=== PATIENT | female | born 1960 | race Caucasian/White ===

== ENCOUNTER 2017-08-02 18:49 | Emergency (ER) | payer BC ==
[~2017-08-02] VITALS: Ht 170.2 cm; Wt 77.0 kg
[2017-08-02 19:02] VITALS: Ht 170.2 cm; Wt 77.0 kg
--- NOTE | 2017-08-02 23:40 | ERA ---
ER Documentation Chief Complaint Date/Time DATE: 08/02/17 TIME: 23:40 Chief Complaint chest pain x 4 days HPI The patient is a 56-year-old female, presenting to the ER because of left chest wall below the left breast pain for the last 4 days,, worse with movement, associated with cough. She denies fever, chills, neck pain, chest pain with exertion or vomiting or diaphoresis, abdominal pain, vomiting, dysuria, diarrhea. She does not smoke nor drink Past medical history: Hypertension, diabetes, legally blind Past surgical history: None ROS All systems reviewed and are negative except as per history of present illness. Medications Home Meds Active Scripts Ibuprofen* (Motrin*) 600 Mg Tab, 600 MG PO Q6, #20 TAB Prov:DAMIEN MARTINEZ MD 08/03/17 Reported Medications Cholecalciferol* (Vitamin D3*) 1,000 Unit Tablet, 2000 UNIT PO DAILY, TAB 08/03/17 Ubidecarenone (COQ10) 50 Mg Tab.chew, 50 MG PO, TAB.CHEW 08/03/17 Nitroglycerin* (Nitroglycerin* SL) 0.4 Mg Tab.subl, 0.4 MG SL Q5MIN Y for CHEST PAIN, BOTTLE 08/03/17 Lisinopril* (Lisinopril*) 20 Mg Tablet, 20 MG PO DAILY, #30 TAB 08/03/17 Donepezil* (Donepezil*) 10 Mg Tablet, 10 MG PO DAILY, #30 TAB 08/03/17 Hydrocodone/Acetaminophen (Mentor 5-325 Tablet) 1 Each Tablet, 1 EACH PO, TAB 08/03/17 Metformin* (Glucophage*) 500 Mg Tab, 500 MG PO WITH BREAKFAST, #30 TAB 08/03/17 Colestipol HCl (Colestid) 1 Gm Tablet, 1 GM PO TID, TAB 08/03/17 Gabapentin* (Gabapentin*) 100 Mg Capsule, 100 MG PO QHS, #90 CAP 08/03/17 Metoprolol Succinate* (Toprol XL*) 100 Mg Tab.sr.24h, 100 MG PO DAILY, #30 TAB 08/03/17 Allergies Allergies: Coded Allergies: No Known Allergy (Unverified , 08/03/17) PMhx/Soc History of Surgery: No Anesthesia Reaction: No Hx Neurological Disorder: No Hx Respiratory Disorders: No Hx Cardiac Disorders: Yes (MITRAL VALVE REGURGITATION; HTN) Hx Miscellaneous Medical Probl: Yes (DIABETES; BLIND) Hx Alcohol Use: No Hx Substance Use: No Hx Tobacco Use: No Smoking Status: Never smoker Physical Exam Vitals Vital Signs Date Time Temp Pulse Resp B/P Pulse Ox O2 Delivery O2 Flow Rate FiO2 08/03/17 00:11 58 20 155/77 99 08/02/17 19:02 97.8 66 20 131/83 99 Physical Exam Const: No acute distress. Head: Atraumatic. Eyes: Normal Conjunctiva. ENT: Normal External Ears, Nose and Mouth. Neck: Full range of motion. No meningismus. Resp: Clear to auscultation bilaterally. Cardio: Regular rate and rhythm.Left chest wall tenderness on palpation, no crepitus Abd: Soft, non distended, normal bowel sounds, non tender. Skin: No petechiae or rashes. Back: No midline or flank tenderness. Ext: No cyanosis, or edema. Neur: Awake and alert. No focal deficit Psych: Normal Mood and Affect. Result Diagram: 08/03/17 0002 08/03/17 0002 Results 24 hrs Laboratory Tests Test 08/03/17 00:02 08/03/17 03:05 White Blood Count 7.010^3/ul Red Blood Count 4.4610^6/ul Hemoglobin 13.3g/dl Hematocrit 37.1% Mean Corpuscular Volume 83.2fl Mean Corpuscular Hemoglobin 29.8pg Mean Corpuscular Hemoglobin Concent 35.8g/dl Red Cell Distribution Width 11.7% Platelet Count 38907^3/UL Mean Platelet Volume 11.4fl Neutrophils % 52.9% Lymphocytes % 41.1% Monocytes % 3.6% Eosinophils % 1.7% Basophils % 0.4% Nucleated Red Blood Cells % 0.0/100WBC Neutrophils # (Manual) 3.710^3/ul Lymphocytes # 2.910^3/ul Monocytes # 0.310^3/ul Eosinophils # 0.110^3/ul Basophils # 0.010^3/ul Nucleated Red Blood Cells # 0.010^3/ul Sodium Level 140mmol/L Potassium Level 3.5mmol/L Chloride Level 104mmol/L Carbon Dioxide Level 27mmol/L Anion Gap 13 Blood Urea Nitrogen 19mg/dl Creatinine 0.56mg/dl Glucose Level 127mg/dl Calcium Level 9.1mg/dl Troponin I < 0.012ng/ml < 0.012ng/ml Current Medications Medications (Trade) Dose Ordered Sig/Sonya Route PRN Reason Start Time Stop Time Status Last Admin Dose Admin Morphine Sulfate (morphine) 2 mg ONCE ONCE IV 08/03/17 01:00 08/03/17 01:01 DC 08/03/17 01:04 Ondansetron HCl (Zofran Inj) 4 mg ONCE STAT IV 08/03/17 00:53 08/03/17 00:54 DC 08/03/17 01:04 Procedures/[place] [id number] Radiology Main Line: [phone] DIAGNOSTIC IMAGING REPORT Patient: PAUL MAJANO : 1960 Age: 56 Sex: F MR #: [id number] DOS: 08/02/17 2357 Ordering MD: DAMIEN MARTINEZ MD Location: E/R Room/Bed: PROCEDURE: XR Chest. CLINICAL INDICATION: Chest pain. TECHNIQUE: Single frontal view of the chest. COMPARISON: None. FINDINGS: Cardiomegaly. The lungs are clear. No signs of pleural fluid or pneumothorax are seen. The osseous structures and soft tissues are unremarkable. IMPRESSION: No evidence for active cardiopulmonary disease. RPTAT: [facility] Physician Fidencio Date Time Electronically viewed and signed by Physician Fidencio on 08/03/2017 02:15 RS/ CC: DAMIEN MARTINEZ MD EKG: At 1902 hrs. Read by emergency physician Rate/Rhythm: Normal Sinus Rhythm 62 beats/min QRS, ST, T-waves: No ST elevation, no T inversion, LAE Impression: Abnormal EKG EKG: At 12:28 AM Read by emergency physician Rate/Rhythm: Sinus bradycardia 57 beats/min QRS, ST, T-waves: No ST elevation, no T inversion Impression: Abnormal EKG MEDICAL MAKING DECISION: The patient is a 56-year-old female, presenting with acute left chest wall pain. She was treated with morphine 2 mg IV for pain, Zofran 4 mg IV for nausea with good response. X The differential diagnoses considered include but are not limited to acute coronary syndrome, acute myocardial infarction, pericarditis, pulmonary embolism , aortic dissection, pneumonia, pleural effusion, pneumothorax, GERD, chest wall pain. Departure Diagnosis: Primary Impression: Chest pain Condition: Good Comments The patient presents with chest pain and I considered pulmonary embolism, aortic dissection, pneumothorax among other diagnoses. Evaluation for acute coronary syndrome was performed. The HEART score (www.mdcalc.com) was utilized for risk stratification and found to be <= 3. Repeat EKG and troponin @ 3 hours were unchanged. Based on this evaluation the patients risk of major adverse cardiac events is <1%. Shared decision making occurred with patient and the decision has been made to discharge the patient for outpatient evaluation and functional study within 72 hours. I discussed the findings with the patient. I advised the patient to follow-up with the primary physician in about 1-2 days, sooner if needed and return if any concern. DAMIEN MARTINEZ MD Aug 02, 2017 23:40
[2017-08-03] MEDS ORDERED: GABA100C14 PO (00:29)
[2017-08-03] MEDS ORDERED: COLE1TAB PO (00:29)
[2017-08-03] MEDS ORDERED: NITR0.4T6 SL (00:29)
[2017-08-03] MEDS ORDERED: METF500T4 PO (00:29)
[2017-08-03] MEDS ORDERED: HYDR-906 PO (00:29)
[2017-08-03] MEDS ORDERED: METO100T13 PO (00:29)
[2017-08-03] MEDS ORDERED: CHOL100062 PO (00:29)
[2017-08-03] MEDS ORDERED: UBID50TA PO (00:29)
[2017-08-03] MEDS ORDERED: DONE10TA7 PO (00:29)
[2017-08-03] MEDS ORDERED: LISI20TA11 PO (00:29)
[2017-08-03 00:42] LABS: BASOPHILS % 0.4 % (0.0-2.0); EOSINOPHILS # 0.1 10^3/ul (0.0-0.5); EOSINOPHILS % 1.7 % (0.0-7.0); HEMATOCRIT 37.1 % (37.0-47.0); HEMOGLOBIN 13.3 g/dl (12.0-16.0); LYMPHOCYTES # 2.9 10^3/ul (0.8-2.9); LYMPHOCYTES % 41.1 % (15.0-51.0); MEAN CORPUSCULAR HEMOGLOBIN 29.8 pg (29.0-33.0); MEAN CORPUSCULAR HGB CONC 35.8 g/dl (32.0-37.0); MEAN CORPUSCULAR VOLUME 83.2 fl (82.0-101.0); MEAN PLATELET VOLUME 11.4 fl (7.4-10.4); MONOCYTE # 0.3 10^3/ul (0.3-0.9); MONOCYTES % 3.6 % (0.0-11.0); NEUTROPHILS % 52.9 % (39.0-77.0); PLATELET COUNT 175 10^3/UL (140-415); RED BLOOD COUNT 4.46 10^6/ul (4.20-5.40); RED CELL DISTRIBUTION WIDTH 11.7 % (11.5-14.5)
[2017-08-03] MEDS ORDERED: ONDANSETRON 4 MG INJ IV STA (00:53)
[2017-08-03] MEDS ORDERED: morphine 2 MG INJ IV ONE (01:00)
[2017-08-03 01:05] LABS: ANION GAP 13 (8-16); BLOOD UREA NITROGEN 19 mg/dl (7-20); CALCIUM 9.1 mg/dl (8.4-10.2); CARBON DIOXIDE 27 mmol/L (21-31); CHLORIDE 104 mmol/L (97-110); CREATININE 0.56 mg/dl (0.44-1.00); GLUCOSE 127 mg/dl (70-220); POTASSIUM 3.5 mmol/L (3.5-5.1); SODIUM 140 mmol/L (135-144)
[2017-08-03 01:17] LABS: TROPONIN-I < 0.012 ng/ml (0.00-0.12)
--- NOTE | 2017-08-03 02:15 | RADRPT ---
PROCEDURE: XR Chest. CLINICAL INDICATION: Chest pain. TECHNIQUE: Single frontal view of the chest. COMPARISON: None. FINDINGS: Cardiomegaly. The lungs are clear. No signs of pleural fluid or pneumothorax are seen. The osseous structures and soft tissues are unremarkable. IMPRESSION: No evidence for active cardiopulmonary disease. RPTAT: [facility] Physician Fidencio Date Time Electronically viewed and signed by Physician Fidencio on 08/03/2017 02:15 RS/
[2017-08-03] MEDS ORDERED: IBUP-1542 PO (04:40)
[2017-08-03 05:21] VITALS: BP 142/81; PULSE 54; RESP 13
== END 2017-08-03 05:37 | disposition home or self-care (01) ==
LOC: E/R 18:49
DX: R07.89 Other chest pain (principal); I10 Essential (primary) hypertension; E11.9 Type 2 diabetes mellitus without complications; Z79.84 Long term (current) use of oral hypoglycemic drugs
CPT/HCPCS: 36415; 71010; 80048; 84484; 85025; 93005; 96374; 96375; 99285; J2270; J2405

== ENCOUNTER 2018-09-19 07:14 | Day surgery (SDC) | END 2018-09-19 16:02 | disposition home or self-care (01) ==